=== PATIENT | male | born 1995 | race Caucasian/White ===

== ENCOUNTER 2019-05-22 16:46 | Emergency (ER) | payer OTHER ==
[~2019-05-22] VITALS: Ht 177.8 cm; Wt 68.5 kg
[2019-05-22 17:00] VITALS: Ht 177.8 cm; Wt 68.5 kg
[2019-05-22 17:35] VITALS: BP 129/93
== END 2019-05-22 17:15 | disposition home or self-care (01) ==
LOC: ED 16:46
DX: R03.0 Elevated blood-pressure reading, without diagnosis of hypertension (principal)